=== PATIENT | female | born 1985 ===

== ENCOUNTER 2018-01-29 10:33 | Day surgery (SDC) | payer OTHER | END 2018-01-29 16:15 | disposition home or self-care (01) | LOC: CIR.AMB 10:33 | DX: O02.1 Missed abortion (principal) ==

== ENCOUNTER 2018-09-30 06:19 | Emergency (ER) | payer OTHER ==
[~2018-09-30] VITALS: Ht 162.6 cm; Wt 88.5 kg
== END 2018-09-30 10:13 | disposition home or self-care (01) ==
LOC: ER 06:19
DX: B34.9 Viral infection, unspecified (principal)

== ENCOUNTER 2019-01-13 12:38 | Inpatient (IN) | payer OTHER ==
[~2019-01-13] VITALS: Ht 162.6 cm; Wt 2.7 kg
[2019-01-27] MEDS ORDERED: PRENATAL 19 TA1 EACH PO (08:06)
[2019-01-27] MEDS ORDERED: IRON325 MG PO (08:07)
== END 2019-01-30 11:34 | disposition home or self-care (01) | DRG 788 ==
LOC: LDR 01-27 02:41 → OB/GYN 01-27 18:14
PROVIDERS: ADMIT Obstetrics & Gynecology Maternal & Fetal Medicine
PROC: 3E033VJ Introduction of Other Hormone into Peripheral Vein, Percutaneous Approach (ICD-10-PCS; 2019-01-27)
PROC: 4A1HXCZ Monitoring of Products of Conception, Cardiac Rate, External Approach (ICD-10-PCS; 2019-01-27)
PROC: 10D00Z1 Extraction of Products of Conception, Low, Open Approach (ICD-10-PCS; principal; 2019-01-27 16:00)
DX: O82 Encounter for cesarean delivery without indication (principal); O64.8XX0 Obstructed labor due to other malposition and malpresentation, not applicable or unspecified; Z3A.39 39 weeks gestation of pregnancy; Z37.0 Single live birth

== ENCOUNTER 2019-01-13 13:50 | Outpatient (CLI) | payer OTHER | END 2019-01-13 15:04 | disposition HB | LOC: NST 13:50 | DX: Z34.83 Encounter for supervision of other normal pregnancy, third trimester (principal) ==

== ENCOUNTER 2019-01-20 14:17 | Outpatient (CLI) | payer OTHER | END 2019-01-20 16:00 | disposition HB | LOC: NST 14:17 | DX: Z34.83 Encounter for supervision of other normal pregnancy, third trimester (principal) ==